=== PATIENT | female | born 2000 | race Caucasian/White ===

== ENCOUNTER → 2019-05-02 | Outpatient (REF) | payer OTHER ==
[2019-05-02 20:40] LABS: CHLAMYDIA DNA AMPLIFICATION NEGATIVE (NEGATIVE); GC DNA AMPLIFICATION NEGATIVE (NEGATIVE)
== END ==
LOC: M SMT 17:19
PROVIDERS: ATTEND Nurse Practitioner Family
DX: Z11.3 Encounter for screening for infections with a predominantly sexual mode of transmission (principal)

== ENCOUNTER → 2020-05-05 | Outpatient (REF) | payer OTHER ==
[2020-05-05 18:57] LABS: CHLAMYDIA DNA AMPLIFICATION NEGATIVE (NEGATIVE); GC DNA AMPLIFICATION NEGATIVE (NEGATIVE)
== END ==
LOC: M SFHCWAGY 16:47
PROVIDERS: ATTEND Nurse Practitioner Family
DX: Z12.4 Encounter for screening for malignant neoplasm of cervix (principal)
CPT/HCPCS: 87661; G0123

== ENCOUNTER → 2022-01-20 | Outpatient (CLI) | payer OTHER ==
[2022-01-20 17:38] LABS: HEMOGLOBIN 10.8 g/dl (12.0-15.5); MEAN CORPUSCULAR HEMOGLOBIN 30.3 pg (27.0-33.0); MEAN CORPUSCULAR HGB CONC 32.7 g/dl (32.0-36.5); MEAN CORPUSCULAR VOLUME 92.4 fl (80.0-96.0); PLATELET COUNT, AUTOMATED 273 10^3/uL (150-450); RED BLOOD COUNT 3.57 10^6/uL (4.00-5.40); WHITE BLOOD COUNT 10.6 10^3/uL (4.0-10.0)
[2022-01-20 19:41] LABS: HEPATITIS C VIRUS ABY INDEX < 0.0 INDEX (<0.8); HIV 1&2 SCREEN CENTAUR NEGATIVE (NEGATIVE)
[2022-01-21 02:53] LABS: GC DNA AMPLIFICATION NEGATIVE (NEGATIVE)
== END ==
LOC: M PLALAB 14:52
PROVIDERS: ATTEND Obstetrics & Gynecology
DX: Z34.91 Encounter for supervision of normal pregnancy, unspecified, first trimester (principal); Z36.89 Encounter for other specified antenatal screening

== ENCOUNTER → 2022-02-16 | Outpatient (REF) | payer OTHER | LOC: M SFHCWAGY 10:31 | PROVIDERS: ATTEND Specialist | DX: N39.0 Urinary tract infection, site not specified (principal) ==

== ENCOUNTER → 2022-03-07 | Outpatient (CLI) | payer OTHER | LOC: M WHC 09:54 | PROVIDERS: ATTEND Obstetrics & Gynecology | DX: Z34.92 Encounter for supervision of normal pregnancy, unspecified, second trimester (principal); Z3A.20 20 weeks gestation of pregnancy ==

== ENCOUNTER → 2022-03-16 | Outpatient (REF) | payer OTHER, MEDICAID | LOC: M PLALAB 16:48 → EEVIPCON 16:48 | PROVIDERS: ATTEND Specialist | DX: Z34.02 Encounter for supervision of normal first pregnancy, second trimester (principal) ==

== ENCOUNTER 2022-03-23 14:17 | Outpatient (CLI) | payer OTHER, MEDICAID ==
[~2022-03-23] VITALS: Ht 160 cm; Wt 67.5 kg
[2022-03-23] MEDS ORDERED: FAMO1TAB11 PO (14:36)
[2022-03-23] MEDS ORDERED: BACTDSTA PO (14:36)
[2022-03-23] MEDS ORDERED: HOME MED LIST COMPLETE! XX SCH (14:40)
[2022-03-23 14:43] VITALS: BP 119/53
== END 2022-03-23 15:48 | disposition home or self-care (01) ==
LOC: M LDO 14:17
PROVIDERS: ATTEND Obstetrics & Gynecology
DX: O26.892 Other specified pregnancy related conditions, second trimester (principal); R10.2 Pelvic and perineal pain; O9A.212 Injury, poisoning and certain other consequences of external causes complicating pregnancy, second trimester; Y92.9 Unspecified place or not applicable; Y93.9 Activity, unspecified; Y99.9 Unspecified external cause status; Z3A.22 22 weeks gestation of pregnancy
CPT/HCPCS: 59025; G0378; G0463

== ENCOUNTER → 2022-04-13 | Outpatient (REF) | payer OTHER, MEDICAID ==
[~2022-04-13] MED LIST: BACTDSTA PO; FAMO1TAB11 PO
== END ==
LOC: M PLALAB 11:12
PROVIDERS: ATTEND Obstetrics & Gynecology
DX: Z34.02 Encounter for supervision of normal first pregnancy, second trimester (principal)

== ENCOUNTER 2022-05-13 21:14 | Outpatient (CLI) | payer OTHER, MEDICAID ==
[~2022-05-13] VITALS: Ht 160 cm; Wt 72.3 kg
[2022-05-13 21:32] VITALS: BP 115/59
[2022-05-13] MEDS ORDERED: PRENTAB9 PO (21:38)
== END 2022-05-13 23:00 | disposition home or self-care (01) ==
LOC: M LDO 21:14
PROVIDERS: ATTEND Obstetrics & Gynecology
DX: O26.893 Other specified pregnancy related conditions, third trimester (principal); R10.2 Pelvic and perineal pain; Z3A.30 30 weeks gestation of pregnancy
CPT/HCPCS: 59025; 81002; G0463

== ENCOUNTER → 2022-05-25 | Outpatient (CLI) | payer OTHER, MEDICAID ==
[~2022-05-25] MED LIST changes: +PRENTAB9 PO
[2022-05-25 16:05] LABS: HEMATOCRIT 30.5 % (36.0-47.0); HEMOGLOBIN 9.3 g/dl (12.0-15.5); MEAN CORPUSCULAR HEMOGLOBIN 28.6 pg (27.0-33.0); MEAN CORPUSCULAR HGB CONC 30.5 g/dl (32.0-36.5); MEAN CORPUSCULAR VOLUME 93.8 fl (80.0-96.0); PLATELET COUNT, AUTOMATED 403 10^3/uL (150-450); RED BLOOD COUNT 3.25 10^6/uL (4.00-5.40); WHITE BLOOD COUNT 13.6 10^3/uL (4.0-10.0)
[2022-05-25 17:15] LABS: GC DNA AMPLIFICATION NEGATIVE (NEGATIVE)
== END ==
LOC: M PLALAB 11:24
PROVIDERS: ATTEND Specialist
DX: Z34.02 Encounter for supervision of normal first pregnancy, second trimester (principal)

== ENCOUNTER → 2022-06-23 | Outpatient (REF) | payer OTHER, MEDICAID | LOC: M SFHCWAGY 16:40 | PROVIDERS: ATTEND Advanced Practice Midwife | DX: Z34.03 Encounter for supervision of normal first pregnancy, third trimester (principal) ==

== ENCOUNTER 2022-07-05 16:17 | Outpatient (CLI) | payer OTHER, MEDICAID ==
[~2022-07-05] VITALS: Ht 160 cm; Wt 76.8 kg
[2022-07-05 16:35] VITALS: BP 125/60
== END 2022-07-05 17:30 | disposition home or self-care (01) ==
LOC: M LDO 16:17
PROVIDERS: ATTEND Advanced Practice Midwife
DX: O26.893 Other specified pregnancy related conditions, third trimester (principal); N89.8 Other specified noninflammatory disorders of vagina; R25.2 Cramp and spasm; Z3A.37 37 weeks gestation of pregnancy
CPT/HCPCS: 59025; G0463

== ENCOUNTER 2022-07-22 11:38 | Outpatient (CLI) | payer OTHER, MEDICAID ==
[~2022-07-22] VITALS: Ht 160 cm; Wt 78.8 kg
[2022-07-22 11:54] VITALS: BP 115/57
== END 2022-07-22 12:35 | disposition home or self-care (01) ==
LOC: M LDO 11:38
PROVIDERS: ATTEND Obstetrics & Gynecology
DX: O26.893 Other specified pregnancy related conditions, third trimester (principal); N89.8 Other specified noninflammatory disorders of vagina; O47.1 False labor at or after 37 completed weeks of gestation; Z3A.40 40 weeks gestation of pregnancy
CPT/HCPCS: 59025; 76815; G0463